=== PATIENT | male | born 1980 | race Caucasian/White ===

== ENCOUNTER 2019-06-14 12:21 | Emergency (ER) | payer MEDICARE, OTHER ==
[2019-06-14] MEDS ORDERED: NORMAL SALINE 1000 ML 1,000 ML IV ONE (12:41)
[2019-06-14 14:00] LABS: ABSOLUTE EOSINOPHILS # (AUTO) 0.1 10^3/uL (0.0-0.6); ABSOLUTE LYMPHOCYTES (AUTO) 1.3 10^3/uL (0.5-4.7); ABSOLUTE MONOCYTES (AUTO) 0.3 10^3/uL (0.1-1.4); ABSOLUTE NEUT (AUTO) 1.3 10^3/uL (1.7-8.2); BASOPHILS % (AUTO) 1.1 % (0-2); EOSINOPHILS % (AUTO) 2.6 % (0-6); HEMATOCRIT 45.1 % (37.9-51.0); HEMOGLOBIN 15.9 g/dL (13.5-17.0); LYMPHOCYTES % (AUTO) 42.2 % (13-45); MEAN CORPUSCULAR HEMOGLOBIN 32.7 pg (27.0-33.4); MEAN CORPUSCULAR HGB CONC 35.2 g/dL (32.0-36.0); MEAN CORPUSCULAR VOLUME 93 fl (80-97); MONOCYTES % (AUTO) 11.2 % (3-13); PLATELET COUNT 102 10^3/uL (150-450); RED BLOOD COUNT 4.86 10^6/uL (4.35-5.55); SEGMENTED NEUTROPHILS % (AUTO) 42.9 % (42-78); TOTAL CELLS COUNTED % (AUTO) 100 %
[2019-06-14 14:25] LABS: ALBUMIN 4.2 g/dL (3.5-5.0); ALKALINE PHOSPHATASE 93 U/L (38-126); ANION GAP 11 (5-19); ASPARTATE AMINO TRANSFERASE 245 U/L (17-59); BILIRUBIN,DIRECT 0.4 mg/dL (0.0-0.4); BILIRUBIN,TOTAL 1.7 mg/dL (0.2-1.3); BLOOD UREA NITROGEN 3 mg/dL (7-20); CALCIUM 9.1 mg/dL (8.4-10.2); CARBON DIOXIDE 30 mmol/L (22-30); CHLORIDE 94 mmol/L (98-107); GLUCOSE 97 mg/dL (75-110); POTASSIUM 4.4 mmol/L (3.6-5.0); TOTAL PROTEIN 9.3 g/dL (6.3-8.2)
--- NOTE | 2019-06-14 14:33 | ER Document Report ---
ED General - General Chief Complaint: Pain All Over Stated Complaint: BODY PAIN Time Seen by Provider: 06/14/19 12:26 Primary Care Provider: KORY RIVERS MD [ACTIVE STAFF] - Follow up in 1 week KISHA ESCOBAR MD [ACTIVE STAFF] - Follow up in 1 month [facility] [Primary Care Provider] - Follow up as needed Mode of Arrival: Ambulatory Information source: Patient Notes: Patient presents with a history of polycythemia vera and states that he has had redness to the hands which made him concerned that he may be needing a therapeutic phlebotomy treatment to manage his polycythemia. Patient denies any fever, cough cold symptoms. Patient denies any recent illness. Patient denies any abdominal pain chest pain headache or problems with urination. Patient states he has been taking his hydroxyurea as prescribed. - HPI Onset: This morning Onset/Duration: Gradual Quality of pain: No pain Associated symptoms: denies: Chest pain, Nonproductive cough, Productive cough, Fever, Headache, Leg swelling, Nausea, Vomiting, Shortness of breath Exacerbated by: Denies Relieved by: Denies Similar symptoms previously: Yes Recently seen / treated by doctor: No - Related Data Allergies/Adverse Reactions: No Known Allergies Allergy (Unverified 06/14/19 12:30) Home Medications: verapamil, 240mg, synthroid 0.15mg, asa 325mg, hydroxyurea 500mg, hctz 25, losartan 100, ativan 2mg prn. Past Medical History - General Information source: Patient - Social History Smoking Status: Never Smoker Chew tobacco use (# tins/day): No Frequency of alcohol use: Social Drug Abuse: None Lives with: Family Family History: Reviewed & Not Pertinent Patient has suicidal ideation: No Patient has homicidal ideation: No - Medical History Medical History: Other - Polycythemia vera - Past Medical History Cardiac Medical History: Reports: Hx Hypertension Endocrine Medical History: Reports: Hx Hypothyroidism Past Surgical History: Reports: Hx Orthopedic Surgery - rt leg plate Review of Systems - Review of Systems Constitutional: No symptoms reported. denies: Fever, Recent illness EENT: No symptoms reported Cardiovascular: No symptoms reported. denies: Chest pain Respiratory: No symptoms reported. denies: Cough, Short of breath Gastrointestinal: No symptoms reported. denies: Abdominal pain, Nausea, Vomiting Male Genitourinary: No symptoms reported Musculoskeletal: denies: Back pain, Joint pain, Muscle pain Skin: Change in color - Redness to the hands Hematologic/Lymphatic: No symptoms reported Neurological/Psychological: No symptoms reported. denies: Headaches Physical Exam - Vital signs Vitals: Temp Pulse Resp BP Pulse Ox 98.2 F 88 19 172/114 H 94 06/14/19 12:29 06/14/19 12:29 06/14/19 12:29 06/14/19 12:29 06/14/19 12:29 - General General appearance: Appears well, Alert In distress: None - HEENT Head: Normocephalic, Atraumatic Eyes: Normal Conjunctiva: Normal. No: Icteric Nasal: Normal Pharynx: Normal Neck: Normal, Supple. No: Lymphadenopathy - Respiratory Respiratory status: No respiratory distress Chest status: Nontender Breath sounds: Normal. No: Rales, Rhonchi, Stridor, Wheezing Chest palpation: Normal - Cardiovascular Rhythm: Regular Heart sounds: S1 appreciated, S2 appreciated Murmur: No Pulses: Normal: Radial - Abdominal Inspection: Normal Distension: No distension Tenderness: Nontender - Back Back: Normal, Nontender. No: CVA tenderness - Extremities General upper extremity: Normal ROM, Other - Erythema bilateral palms General lower extremity: Normal inspection, Normal ROM - Neurological Neuro grossly intact: Yes Cognition: Normal Orientation: AAOx4 Evon Coma Scale Eye Opening: Spontaneous [place]ilwell Coma Scale Verbal: Oriented Stilwell Coma Scale Motor: Obeys Commands Stilwell Coma Scale Total: 15 - Psychological Associated symptoms: Normal affect, Normal mood - Skin Skin Temperature: Warm Skin Moisture: Dry Skin Color: Erythema - Lateral palms Course - Re-evaluation Re-evalutation: 06/14/19 14:[address] Escobar's office, number busy will attempt to re-call shortly 06/14/19 14:[address] Escobar who states that after reviewing patient's labs he does not need a prophylactic phlebotomy treatment at this time although he does need a GI consult for further evaluation of his elevated LFTs. Patient does endorse a history of alcohol use. 06/14/19 15:00 Discussed results of patient's diagnostic evaluation with patient. Discussed conversation with Dr. Escobar. Patient advised of abnormal liver function test results. Patient states that this is something that he has been diagnosed with previously and that has been attributed to his hydroxyurea. Patient states that his liver function tests were actually much higher in the past. Patient encouraged to follow-up with decorating inspector as well as Dr. Escobar for further evaluation. Patient denies any other complaints or symptoms at this t mina. Patient agreeable with discharge plan of care. - Vital Signs Vital signs: Temp Pulse Resp BP Pulse Ox 98.0 F 83 17 150/90 H 93 06/14/19 14:27 06/14/19 14:27 06/14/19 14:27 06/14/19 14:27 06/14/19 14:27 - Laboratory Result Diagrams: 06/14/19 13:46 06/14/19 13:46 Laboratory results interpreted by me: 06/14/19 06/14/19 13:46 13:46 WBC 3.0 L Plt Count 102 L Absolute Neuts (auto) 1.3 L Sodium 135.2 L Chloride 94 L BUN 3 L Total Bilirubin 1.7 H AST 245 H ALT 97 H Total Protein 9.3 H 06/14/19 16:05 Labs- Entire Visit 06/14/19 06/14/19 06/14/19 13:46 13:46 13:46 WBC 3.0 L RBC 4.86 Hgb 15.9 Hct 45.1 MCV 93 MCH 32.7 MCHC 35.2 RDW 14.0 Plt Count 102 L Lymph % (Auto) 42.2 [place] % (Auto) 11.2 Eos % (Auto) 2.6 Baso % (Auto) 1.1 Absolute Neuts (auto) 1.3 L Absolute Lymphs (auto) 1.3 Absolute Monos (auto) 0.3 Absolute Eos (auto) 0.1 Absolute Basos (auto) 0.0 Seg Neutrophils % 42.9 Sodium 135.2 L Potassium 4.4 Chloride 94 L Carbon Dioxide 30 Anion Gap 11 BUN 3 L Creatinine 0.59 Est GFR ( Amer) > 60 Est GFR (MDRD) Non-Af > 60 Glucose 97 Calcium 9.1 Total Bilirubin 1.7 H Direct Bilirubin 0.4 Neonat Total Bilirubin Not Reportable Neonat Direct Bilirubin Not Reportable Neonat Indirect Bili Not Reportable AST 245 H ALT 97 H Alkaline Phosphatase 93 Total Protein 9.3 H Albumin 4.2 Lipase 83.7 Discharge - Discharge Clinical Impression: Liver function abnormality, Hx of polycythemia vera Condition: Stable Disposition: HOME, SELF-CARE Instructions: Liver Function Abnormality ([facility]) Additional Instructions: Return immediately for any new or worsening symptoms Followup with your primary care provider, call tomorrow to make a followup appointment Follow-up with a decorating inspector, Dr Rivers, call tomorrow to make a follow-up appointment Follow-up with Dr. Escobar's office, call tomorrow to make a follow-up appointment Avoid heavy drinking until cleared by the decorating inspector or primary care provider Referrals: [facility] [Primary [facility]] - Follow up as needed KISHA ESCOBAR MD [ACTIVE STAFF] - Follow up in 1 month KORY RIVERS MD [ACTIVE STAFF] - Follow up in 1 week
[2019-06-14 16:28] VITALS: BP 162/94
== END 2019-06-14 16:26 | disposition home or self-care (01) ==
LOC: ER 12:21
DX: R94.5 Abnormal results of liver function studies (principal); M79.10 Myalgia, unspecified site; R11.2 Nausea with vomiting, unspecified; R06.02 Shortness of breath; I10 Essential (primary) hypertension
CPT/HCPCS: 99283; 96360; 36415; 83690; 85025; 80053; J7030